=== PATIENT | female | born 1970 | race Two or more races ===

== ENCOUNTER 2024-07-09 12:12 | Outpatient (REF) | payer OTHER, SELFPAY ==
[2024-07-09 13:31] LABS: Hematocrit 41.7 % (37.0-47.0); Hemoglobin 13.4 g/dl (12.0-16.0); Mean Corpuscular HGB Conc 32.1 g/dl (31.0-35.0); Mean Corpuscular Hemoglobin 29.8 pg (27.0-33.0); Mean Corpuscular Volume 92.9 fL (80.0-98.0); Mean Platelet Volume 12.2 fL (9.4-12.3); Platelet Count 225 X10*3/uL (160-400); Red Blood Count 4.49 X10*6/uL (4.20-5.50); Red Cell Distribution Width 12.8 % (11.0-16.0)
[2024-07-09 13:46] LABS: Estimated Average Glucose 148 mg/dL; Hemoglobin A1C 179.4932 umol/L; Hemoglobin A1c % 6.8 % (<6.0); Total Hemoglobin (HGBA1C) 3500.6638 umol/L
[2024-07-09 14:02] LABS: Creatinine Urine 108.54 mg/dL; Microalbum/Creatinine Ratio Ur 5.5 ug/mg cr (<30)
--- OUTSIDE RECORDS SUMMARY | 2024-07-09 14:35 | XMS_ITS | Clinical Summary ---
Author Organization [facility] Address [address] [place] [address] Care Team Providers Care Launderette Attendant Name Role Phone Lesly Darling ELECTRON BEAM PHOTO MASK TECHNICIAN Primary Care Provider [phone] Source Comments PLEASE NOTE, if this patient is a minor, it may be UNLAWFUL to discuss sensitive information that is contained in these records (such as FAMILY PLANNING, MENTAL HEALTH or SUBSTANCE ABUSE) with the minor patient's parent or other person without the patient's specific authorization.[facility] Allergies Active Allergy Reactions Criticality Noted Date Comments Metformin Diarrhea 10/11/2023 Medications albuterol sulfate 90 mcg/actuation inhalerIndication s:SOB (shortness of breath) Inhale 2 Puffs into the lungs every 4 (four) hours as needed for shortness of breath or wheezing 18 g 1 02/04/20 20 Active cholecalciferol, vitamin D3, (VITAMIN D3) 1,250 mcg (50,000 unit) tab tabletIndications :Low vitamin D level Take 1 Tablet by mouth once a week 12 Tablet 3 05/28/19 23 Active blood-glucose meter monitoring kitIndications:Un controlled type 2 diabetes mellitus with hyperglycemia ([facility]) as needed for blood glucose monitoring Dispense Freeystyle 1 Each 01/21/20 23 Active lidocaine (LIDODERM) 5 % patchIndications: Chronic pain of right knee Place 1 Patch onto the skin once daily (every 24 hours) Rt leg pain/hip 30 Patch 2 01/21/20 23 Active budesonide-formot Jami (SYMBICORT) 160-4.5 mcg/actuation inhalerIndication s:Post viral syndrome Inhale 2 Puffs into the lungs 2 (two) times daily for 10 days 10 g 03/14/20 23 Active alcohol swabsIndications: Uncontrolled type 2 diabetes mellitus with hyperglycemia ([facility]) Check sugar daily. Dx: E11.65. 100 Each 5 05/30/19 24 Active cyclobenzaprine (FLEXERIL) 10 mg tabletIndications :Back strain, initial encounter Take 1 Tablet by mouth 3 (three) times daily as needed for muscle spasms 20 Tablet 1 07/12/19 24 Active celecoxib (CELEBREX) 200 mg capsuleIndication s:Back strain, initial encounter Take 1 Capsule by mouth 2 (two) times daily as needed for pain 60 Capsule 1 07/12/19 24 Active diclofenac sodium (SOLARAZE) 3 % gelIndications:Ba ck strain, initial encounter Apply topically 2 (two) times daily Rt sided back pain 100 g 2 07/12/19 24 Active lancets (FREESTYLE LANCETS) 28 gaugeIndications: Uncontrolled type 2 diabetes mellitus with hyperglycemia ([facility]) Freestyle lite lancets, check sugar 3 times daily. Dx: E11.65 100 Each 08/10/19 24 Active hydrocortisone 0.5 % creamIndications: Rash Apply topically 2 (two) times daily as needed for rash or itching At leg rash. 30 g 1 10/11/19 24 Active atorvastatin (LIPITOR) 80 mg tabletIndications :Hyperlipidemia LDL goal <70 Take 1 Tablet by mouth every evening For cholesterol 90 Tablet 1 03/22/19 25 Active acetaminophen (TYLENOL) 500 mg tabletIndications :Muscular pain Take 1 Tablet by mouth every 6 (six) hours as needed for pain 60 Tablet 2 03/22/19 25 Active empagliflozin (JARDIANCE) 25 mg tabIndications:Un controlled type 2 diabetes mellitus with hyperglycemia ([facility]) Take 1 Tablet by mouth every morning For diabetes 90 Tablet 1 04/30/19 25 Active blood sugar diagnostic (FREESTYLE LITE STRIPS) stripsIndications :Uncontrolled type 2 diabetes mellitus with hyperglycemia ([facility]) daily 100 Each 04/30/19 25 Active semaglutide (OZEMPIC) 2 mg/dose (8 mg/3 mL) pen injectorIndicatio ns:Uncontrolled type 2 diabetes mellitus with hyperglycemia ([facility]),Class 1 obesity due to excess calories with serious comorbidity and body mass index (BMI) of 30.0 to 30.9 in adult Inject 2 mg into the skin once a week 9 mL 3 04/30/19 25 Active glipiZIDE (GLUCOTROL) 10 mg tabletIndications :Uncontrolled type 2 diabetes mellitus with hyperglycemia ([facility]) Take 1 Tablet by mouth 2 (two) times daily with a meal For diabetes 180 Tablet 1 06/28/19 25 Active biotin 5 mg tabIndications: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 Take 5 mg by mouth once daily 90 Tablet 3 04/19/19 23 025 Discontin ued(Thera py completed /Not needed) olopatadine (PATANOL) 0.1 % ophthalmic solution Place 1 Drop into the left eye 2 (two) times daily 5 mL 11/20/19 23 025 Discontin ued(Thera py completed /Not needed) glipiZIDE (GLUCOTROL) 10 mg tabletIndications :Uncontrolled type 2 diabetes mellitus with hyperglycemia ([facility]) Take 1 Tablet by mouth 2 (two) times daily with a meal For diabetes 180 Tablet 1 12/29/19 24 025 Discontin ued(Reord er (E-Cancel Not Sent)) benzonatate (TESSALON) 100 mg capsuleIndication s:Cough Take 1 Capsule by mouth 3 (three) times daily as needed for cough 30 Capsule 04/26/19 25 025 Discontin ued(Thera py completed /Not needed) Active Problems Problem Noted Date Diagnosed Date Class 1 obesity due to exces s calories with serious comorbidity and body mass index (BMI) of 30.0 to 30.9 in adult 07/06/2023 Mixed hyperlipidemia 11/03/2019 Type 2 diabetes mellitus wit hout complication, without long-term current use of insulin ([facility]) 09/29/2019 Low vitamin D level 09/29/2019 Encounters Date Type Department Care Team Description 06/26/2024 3:20 PM EDT Office Visit [address] [phone] Jose Clay, PharmD Zayda Garvey Type 2 diabetes mellitus without complication, without long-term current use of insulin ([facility]) (Primary Dx); Class 1 obesity due to excess calories with serious comorbidity and body mass index (BMI) of 30.0 to 30.9 in adult; Medication management 04/29/2024 3:20 PM EST Office Visit [place] [address] [place] [address] Jose Clay, PharmD Asia Chawla Type 2 diabetes mellitus without complication, without long-term current use of insulin ([facility]) (Primary Dx); Medication management from Last 3 Months Immunizations Immunization Administration Dates Next Due Flu, Preservative Free 12/23/2019,12/25/2017,05/2016 Hep B,adult,adjuvanted (HEPLISAV) 08/03/2022,12/2022 INFLUENZA, SEASONAL, INJECTABLE 12/18/2009 Moderna COVID-19 Vaccine, re d cap blue label, 12+ Primary Series 04/15/2020,03/17/2020 PNEUMOCOCCAL CONJUGATE PCV 13 06/07/2017 PNEUMOCOCCAL POLYSACCHARIDE PPV23 12/13/2017,03/2009 TDAP 07/08/2021 ZOSTER VACCINE, RECOMBINANT (SHINGRIX) Social History Tobacco Use Types Packs/Day Years Used Date Smoking Tobacco: Never Passive Smoke Exposure: Never Smokeless Tobacco: Never Tobacco Cessation:Counseling Given: Not Answered Alcohol Use Standard Drinks/Week Comments Not Currently 0 (1 standard drink = 0.6 oz pur e alcohol) Social Connections Answer Date Recorded Connectedness 1 09/25/2023 Financial Resource Strain Answer Date R ecorded Financial Resource Strain 1 2023 Stress Answer Date Recorded Stress 1 09/25/2023 Physical Activity Answer Date Recorded Physical Activity 0 09/25/2019 Food Insecurity Answer Date Recorded Food 1 09/25/2023 Transportation Needs Answer Date Record ed Transportation 1 09/25/2023 Housing Stability Answer Date Recorded Housing 0 09/25/2023 Safety and Environment Answer Date Kraig rded Safety 0 05/27/2022 Utilities Answer Date Recorded Utilities 1 09/25/2023 Employment Answer Date Recorded Stress 0 09/25/2019 Comments No Sex and Gender Information Value Date Recorded Sex Assigned at Female 03/05/2020 12:57 PM PST Legal Sex Female 8:56 AM PDT Gender Identity Female 03/05/2020 12:57 PM PST Sexual Orientation Straight 03/05/2020 12 :57 PM PST Last Filed Vital Signs Vital Sign Reading Time Taken Comments Blood Pressure 102/60 06/26/2024 3:23 PM EDT Pulse 69 06/26/2024 3:23 PM EDT Temperature 37 ??C (98.6 ??F) 06/26/2024 3:23 PM EDT Respiratory Rate 16 06/26/2024 3:23 PM EDT Oxygen Saturation 100% 04/29/2024 3:39 PM EST Inhaled Oxygen Concentration - - Weight 72.2 kg (159 lb 3.2 oz) 06/26/2024 3:23 P M EDT Height 154.9 cm (5' 1 ) 06/26/2024 3:23 PM EDT Body Mass Index 30.08 06/26/2024 3:23 PM EDT Plan of Treatment Upcoming Encounters Date Type Department Care Team (Late st Contact Info) Description 07/16/2024 2:40 PM EDT Office Visit [address] [phone] Artemio Cruz MD [address] [place] [phone] Zayda Garvey [address] [place] [phone] 07/19/2024 4:00 PM EDT Office Visit [address] [phone] Kanchan Robles PA-C [address] [place] [phone] 08/15/2024 3:20 PM EDT Office Visit [address] [phone] Jose Clay, PharmD [address] [place] [phone] Zayda Garvey [address] [place] [phone] Health Maintenance Due Date Last Done Comments Anxiety Screening 1970 Dental Examination 1970 HPV Screening [address] Colonography 2015 Colonoscopy 2015 Colorectal Cancer Screening 2015 FIT/gFOBT 2015 Fecal DNA 2015 Flexible Sigmoidoscopy 2015 Cervical Cancer Screening 08/30/2021 Pap + HPV 08/30/2021 08/30/2016 Imm-Pneumococcal (3 of 3 - PCV20 or PCV21) 12/13/2022 12/13/2017, 06/07/2017, 12/18/2009 Diabetes Foot Exam 05/29/2024 05/30/2023 Annual Preventive Care Visit 07/11/2024 07/12/2023, 05/27/2022 Diabetes HbA1c 07/27/2024 04/29/2024, 12/18, 09/25/2023, Additional history exists Imm-Influenza (#1) 2024 12/23/2019, 1 , 12/20/2016, Additional history exists Postponed from 11/19/2023 (Patient postponement) [id number] ( season) 2024 04/15/2020, 03/17/2020 Postponed from 11/19/2023 (Patient postponement) Lipid Screening 09/24/2024 09/25/2023, 06/2022, 05/27/2022, Additional history exists Serum Creatinine 09/24/2024 09/25/2023, 06/2022, 05/27/2022, Additional history exists Tobacco Screening 09/24/2024 09/25/2023, 07/06/2023 Urine Albumin Creatinine Ratio Screening 09/24/2024 09/25/2023, 05/30/2023, 05/27/2022, Additional history exists Retinopathy Screening 12/12/2024 12/13/2023 , 12/13/2023, 09/26/2022, Additional history exists Hypertension Screening (#1) 06/26/2025 Breast Cancer Screening (Mammogram) 08/07/2025 08/08/2023, 08/25/2020, 08/03/2016 Imm-DTaP/Tdap/Td (2 - Td or Tdap) 07/09/2031 07/08/2021 HIV Screening Completed 09/25/2019 Hepatitis C Screening Completed 09/25/2019 Imm-Zoster, Recombinant Discontinued 05/27/2022 Imm-Hepatitis B Completed 08/03/2022, 05/27/2022 Alcohol and Drug Screen Completed 03/22/19, 09/25/2023, 07/06/2023, Additional history exists Depression Annual Screen Completed 03/22/2024 Cervical Ablation/Cold-Knife Conization Discontinued Cervical Cryotherapy Discontinued Colposcopy Discontinued Endometrial Biopsy Discontinued Excision/Leep Discontinued HPV Genotyping Discontinued Vaginal Pap Discontinued Vulvoscopy Discontinued Procedures Procedure Name Priority Date/Time Associated Diagnosis Comments GLUCOSE, BLOOD BY GLUCOSE MONITORING DEVICE (CLIA WAIVED)POCT Routine 06/26/2024 3:28 PM EDT Type 2 diabetes mellitus without complication, without long-term current use of insulin ([facility]) OTHER ORDERS SCANNED DOCUMENT 06/26/2024 3:00 AM EDT OTHER ORDERS SCANNED DOCUMENT 06/25/2024 3:00 AM EDT HEMOGLOBIN GLYCOSYLATED A1C Routine 04/29/2024 3:59 PM EST Type 2 diabetes mellitus without complication, without long-term current use of insulin ([facility]) GLUCOSE, BLOOD BY GLUCOSE MONITORING DEVICE (CLIA WAIVED)POCT Routine 04/29/2024 3:44 PM EST Type 2 diabetes mellitus without complication, without long-term current use of insulin ([facility]) EYE EXAM 12/13/2023 3:00 AM EDT COMPREHENSIVE METABOLIC PANEL Routine 09/25/2023 4:27 PM EDT Uncontrolled type 2 diabetes mellitus with hyperglycemia ([facility]) Mixed hyperlipidemia Diarrhea, unspecified type LIPID PANEL Routine 09/25/2023 4:27 PM EDT Uncontrolled type 2 diabetes mellitus with hyperglycemia ([facility]) Mixed hyperlipidemia Diarrhea, unspecified type MICROALBUMIN/CREATINI NE RATIO, URINE, RANDOM Routine 09/25/2023 4:27 PM EDT Uncontrolled type 2 diabetes mellitus with hyperglycemia ([facility]) Mixed hyperlipidemia Diarrhea, unspecified type HISTORIC MAMMOGRAM 08/08/2023 3: 00 AM EDT ANTIBODY HIV-1&HIV-2 SINGLE RESULT Routine 09/25/2019 11:27 AM EDT Uncontrolled type 2 diabetes mellitus with hyperglycemia ([facility]) HEPATITIS A,B,C PANEL Routine 09/25/2019 11:27 AM EDT Uncontrolled type 2 diabetes mellitus with hyperglycemia ([facility]) from Last 3 Months or Most Recently Relevant to Health Maintenance Results * (ABNORMAL) GLUCOSE, BLOOD BY GLUCOSE MONITORING DEVICE (CLIA WAIVED)POCT (06/26/2024 3:28 PM EDT) Only the most recent of2 resultswithin the time period is included. GLUCOSE 107(A) 70 - 100 mg/dL [facility] POCT Capillary Blood Blood / Unknown 3:28 PM EDT Jose Clay PharmD LAB - BLOOD DRAW Final Resu lt [facility] POCT * OTHER ORDERS SCANNED DOCUMENT (06/26/2024 3:00 AM EDT) Only the most recent of2 resultswithin the time period is included. 06/26/2024 3:00 AM EDT Lesly Darling ELECTRON BEAM PHOTO MASK TECHNICIAN SCAN OTHER ORDERS Final Result * (ABNORMAL) HEMOGLOBIN GLYCOSYLATED A1C (04/29/2024 3:59 PM EST) HEMOGLOBIN A1C 7.1(H) <5.7 % of total Hgb [facility] Comment: For someone without known diabetes, a hemoglobin A1c value of 6.5% or greater indicates that they may have diabetes and this should be confirmed with a follow-up test. For someone with known diabetes, a value <7% indicates that their diabetes is well controlled and a value greater than or equal to 7% indicates suboptimal control. A1c targets should be individualized based on duration of diabetes, age, comorbid conditions, and other considerations. Currently, no consensus exists regarding use of hemoglobin A1c for diagnosis of diabetes for children. ?? Blood Blood / Unknown 04/29/2024 3 :59 PM EST 04/29/2024 3:59 PM EST Narrative [facility] - 04/30/2024 4:53 AM EST FASTING:NO Butch Graf PharmD LAB - BLOOD DRAW Final Re sult Performing Organization Address [facility]/ZIP Co de Phone Number [facility] [address] [address], [facility] [address] [address] * EYE EXAM (12/13/2023 3:00 AM EDT) 12/13/2023 3:00 AM EDT Lesly [facility] OTHER Edited Result - Final * MICROALBUMIN/CREATININE RATIO, URINE, RANDOM (09/25/2023 4:27 PM EDT) CREATININE, RANDOM URINE 235 20 - 275 mg/dL [facility] MICROALBUMIN 0.7 mg/dL [facility] Comment: Reference Range Not established MICROALBUMIN/CREA TININE RATIO, RANDOM URINE 3 <30 mg/g creat [facility] Comment: The ADA defines abnormalities in albumin excretion as follows: Albuminuria Category ?Result (mg/g creatinine) Normal to Mildly increased ?? <30 Moderately increased ? 30-299 Severely increased ? > OR = 300 The ADA recommends that at least two of three specimens collected within a 3-6 month period be abnormal before considering a patient to be within a diagnostic category. Urine Urine specimen / Unknown 09/25/2023 4:27 PM EDT 09/25/2023 4:28 PM EDT Narrative [facility] - 09/26/2023 2:22 PM EDT FASTING:YES Lesly LESTERP LAB - NO BLOOD DRAW Final Resu lt Performing Organization Address [facility]/ZIP Co de Phone Number [facility] [address] [address], [facility] [address] * (ABNORMAL) LIPID PANEL (09/25/2023 4:27 PM EDT) CHOLESTEROL, TOTAL 197 <200 mg/dL [facility] HDL CHOLESTEROL 60 > OR = 50 mg/dL [facility] TRIGLYCERIDES 120 <150 mg/dL [facility] LDL-CHOLESTEROL 114(H) 99 mg/dL (calc) [facility] Comment: Reference range: <100 Desirable range <100 mg/dL for primary prevention; ?? <70 mg/dL for patients with CHD or diabetic patients with > or = 2 CHD risk factors. LDL-C is now calculated using the Lucía calculation, which is a validated novel method providing better accuracy than the Friedewald equation in the estimation of LDL-C. Deangelo SS et al. DAVID. 2013;310(19): 7152-8702 (http://education.ii4b/faq/DLQ956) CHOL/HDLC RATIO 3.3 <5.0 (calc) [facility] NON-HDL CHOLESTEROL 137(H) <130 mg/dL (calc) [facility] Comment: For patients with diabetes plus 1 major ASCVD risk factor, treating to a non-HDL-C goal of <100 mg/dL (LDL-C of <70 mg/dL) is considered a therapeutic option. Blood Blood / Unknown 09/25/2023 4 :27 PM EDT 09/25/2023 4:28 PM EDT Narrative [facility] - 09/26/2023 2:22 PM EDT FASTING:YES us Lesly LESTERP LAB - BLOOD DRAW Final Result Performing Organization Address City/[facility]/ZIP Co de Phone Number [facility] [address] [address], [facility] [address] [address] * (ABNORMAL) COMPREHENSIVE METABOLIC PANEL (09/25/2023 4:27 PM EDT) GLUCOSE 198(H) 65 - 99 mg/dL [facility] Comment: ?Fasting reference interval For someone without known diabetes, a glucose value >125 mg/dL indicates that they may have diabetes and this should be confirmed with a follow-up test. UREA NITROGEN (BUN) 14 7 - 25 mg/dL [facility] CREATININE (blood) 0.77 0.50 - 1.03 mg/dL [facility] EGFR 92 > OR = 60 mL/min/1. 73m2 [facility] BUN/CREATININE RATIO SEE NOTE: [facility] Comment: ?? Not Reported: BUN and Creatinine are within ?? reference range. ? SODIUM 136 135 - 146 mmol/L [facility] POTASSIUM 4.5 3.5 - 5.3 mmol/L [facility] CHLORIDE 99 98 - 110 mmol/L [facility] CARBON DIOXIDE 30 20 - 32 mmol/L [facility] CALCIUM 9.8 8.6 - 10.4 mg/dL [facility] PROTEIN, TOTAL 7.9 6.1 - 8.1 g/dL [facility] ALBUMIN 4.3 3.6 - 5.1 g/dL [facility] GLOBULIN 3.6 1.9 - 3.7 g/dL (calc) [facility] ALBUMIN/GLOBULI N RATIO 1.2 1.0 - 2.5 (calc) [facility] BILIRUBIN, TOTAL 0.5 0.2 - 1.2 mg/dL [facility] ALKALINE PHOSPHATASE 84 37 - 153 U/L [facility] AST 15 10 - 35 U/L [facility] ALT 21 6 - 29 U/L [facility] Blood Blood / Unknown 09/25/2023 4 :27 PM EDT 09/25/2023 4:28 PM EDT Narrative [facility] - 09/26/2023 2:22 PM EDT FASTING:YES Lesly LESTERP LAB - BLOOD DRAW Edited Result - Final [facility] [address] [address], [facility] [address] [place] [address] * HISTORIC MAMMOGRAM (08/08/2023 3:00 AM EDT) 08/08/2023 3:00 AM EDT Lesly LESTERP IMG MAMMO Final Result * HEPATITIS A,B,C PANEL (09/25/2019 11:27 AM EDT) HEPATITIS B SURFACE ANTIBODY NEGATIVE NEGATIVE [facility] HEPATITIS B SURFACE ANTIGEN NEGATIVE NEGATIVE [facility] Comment: Over the counter supplements containing high doses of biotin may interfere with this assay. ??If interference is suspected, patients shoud be retested after refraining from biotin supplements for 72 hours. HEPATITIS C VIRUS DIAGNOSTIC NEGATIVE NEGATIVE [facility] HEPATITIS B CORE ANTIBODY NEGATIVE NEGATIVE [facility] HEPATITIS A ANTIBODY TOTAL NEGATIVE NEGATIVE [facility] Comment: Over the counter supplements containing high doses of biotin may interfere with this assay. ??If interference is suspected, patients shoud be retested after refraining from biotin supplements for 72 hours. Blood specimen (specimen) Blood / Unknown 09/25/2019 11:27 AM EDT 09/25/2019 3:44 PM EDT Narrative [facility] - 09/25/2019 5:33 PM EDT [employer] [address] Wire Walker - Iliana Lyons MD PT ID [id number] ORD# [id number] Lesly Darling [facility] LAB - BLOOD DRAW [place] [address], * HIV-1 & HIV-2 ANTIBODIES (09/25/2019 11:27 AM EDT) HIV 1 AND 2 ANTIBODY SCREEN NEGATIVE NEGATIVE [facility] Comment: This assay is a 4th generation assay allowing for earlier detection of HIV infection by detecting the presence of the HIV-1 p24 antigen as well as the traditional antibodies to HIV type 1 (including group O) and type 2. ??Use of a 4th generation assay is the current CDC recommendation for HIV screening. Blood specimen (specimen) Blood / Unknown 09/25/2019 11:27 AM EDT 09/25/2019 3:44 PM EDT [facility] [employer] - 09/25/2019 6:02 PM EDT [employer], a member of [address] [address] Wire Walker - Iliana Lyons MD PT ID [id number] ORD# [id number] Lesly [facility] LAB - BLOOD DRAW Edited Result - Final [employer] [address], from Last 3 Months or Most Recently Relevant to Health Maintenance Insurance [employer] Member Subscriber Plan / Payer (Ef fective 2019-Present) Name:Ashli Avendaño Relation to Subscriber:Self Name:Ashli Avendaño Payer ID:[id number] Type:Indemnity Address: [facility] [address] [place] [address] Care Teams Launderette Attendant Relationship Specialty Start Date End Date Lesly Darling FNP [address] [place] [address] PCP - General Internal Medicine 07/11/19
--- OUTSIDE RECORDS SUMMARY | 2024-07-09 14:35 | XMS_ITS | Clinical Summary ---
Author Organization [employer] Address [address] [facility] [address] [place] [address] Care Team Providers Care Auto Heater Mechanic Name Role Phone Ilda Stewart DO Primary Care Provider [phone] Allergies Active Allergy Reactions Criticality Noted Date Comments Metformin Diarrhea 10/11/2023 Medications glipiZIDE (Glucotrol) 10 MG tablet Take 10 mg by mouth with breakfast and with evening meal. 5 Active FREESTYLE LITE test strip Once per day. 5 Active albuterol 108 (90 Base) MCG/ACT inhaler Inhale 2 puffs every 4 (four) hours if needed. 0 Active atorvastatin (Lipitor) 80 MG tablet Take 80 mg by mouth in the evening. 5 Active empagliflozin (Jardiance) 25 MG Take 25 mg by mouth in the morning. 5 Active FreeStyle lancets Freestyle lite lancets, check sugar 3 times daily. Dx: E11.65 4 Active Active Problems Problem Noted Date Diagnosed Date Type 2 diabetes mellitus 07/09/2024 Hyperlipidemia 07/09/2024 Encounters Date Type Department Care Team Description 07/09/2024 10:45 AM EDT Office Visit [facility] [address] [place] [phone] Ilda Stewart DO Routine history and physical examination of adult (Primary Dx); Type 2 diabetes mellitus without complication, without long-term current use of insulin ([facility]); Other hyperlipidemia; Anxiety; Mild intermittent asthma without complication; BMI 29.0-29.9,adult 07/09/2024 Travel 06/28/2024 Patient Outreach [facility] [address] [place] [phone] Jurcsak, Ilda, DO Pre-visit Planning ((Unable to reach for PVP screening, LVM)) 05/02/2024 Telephone [facility] [address] [place], [place] [phone] Mayra Hurt NP New patient from Last 3 Months Immunizations Name Administration Dates Next Due HepB-CpG 08/03/2022,05/27/2022 Influenza injectable quadriv alent preservative free 12/23/2019,12/25/2017,12/20/2016 Influenza, IIV3, injectable 12/18/2009 Pneumococcal Conjugate PCV 13 06/07/2017 Pneumococcal Polysaccharide PPSV23 12/13/2017, Tdap 07/08/2021 Zoster, Recombinant 05/27/2022 Family History Medical History Relation Name Comments Diabetes Brother Hypertension Brother Colon cancer Father Diabetes Father Diabetes Half-Sister Hypertension Half-Sister Stroke Half-Sister Colon cancer Maternal Grandfather Breast cancer Maternal Grandmother Breast cancer Mother Colon cancer Mother Diabetes Mother Breast cancer Paternal Grandmother Diabetes Sister Hypertension Sister Relation Name Status Comments Brother Father Half-Sister Maternal Grandfather Maternal Grandmother Mother Paternal Grandmother Sister Social History Tobacco Use Types Packs/Day Years Used Date Smoking Tobacco: Never Smokeless Tobacco: Never Tobacco Cessation:Counseling Given: Not Answered Alcohol Use Standard Drinks/Week Comments Never 0 (1 standard drink = 0.6 oz pur e alcohol) Depression Answer Date Recorded Patient Health Questionnaire-9 Score 0 07/09/2024 Patient Health Questionnaire-9 Score 0 07/09/2024 Last PHQ-9: Questionnaire Data Not on file 0 07/09/2024 Food Insecurity Answer Date Recorded Within the past 12 months, y ou worried that your food would run out before you got money to buy more: Sometimes True 2024 Within the past 12 months,th e food you bought just didn't last and you didn't have enough money to get more: Not on file 07/09/2024 Utilities Answer Date Recorded In the past 12 months, has t he electric, gas, oil or water company threatened to shut off services in your home? Yes 07/09/2024 Depression Answer Date Recorded Patient Health Questionnaire-2 Score 0 07/09/2024 Internet Access Answer Date Recorded Internet Access Q1 Yes 07/09/2024 Internet Access Q2 Not on file 07/09/2024 Comments Unknown Sex and Gender Information Value Date Recorded Sex Assigned at Unknown 07/05/2024 11:29 AM EDT Legal Sex Female 9:25 AM EST Gender Identity Choose not to disclose 11:29 AM EDT Sexual Orientation Don't know 07/05/2024 12 :39 PM EDT Last Filed Vital Signs Vital Sign Reading Time Taken Comments Blood Pressure 118/75 07/09/2024 11:17 AM EDT Pulse 79 07/09/2024 11:17 AM EDT Temperature 36.3 ??C (97.3 ??F) 07/09/2024 11:17 AM E DT Respiratory Rate 16 07/09/2024 11:17 AM EDT Oxygen Saturation 100% 07/09/2024 11:17 AM EDT Inhaled Oxygen Concentration - - Weight 70.3 kg (155 lb) 07/09/2024 11:17 AM EDT Height 154.9 cm (5' 1 ) 07/09/2024 11:17 AM EDT Body Mass Index 29.29 07/09/2024 11:17 AM EDT Plan of Treatment Health Maintenance Due Date Last Done Comments CT Colonography 1970 Colonoscopy 1970 Colorectal Cancer Screening 1970 FIT DNA/Cologuard 1970 FIT 1970 FOBT 1970 HIV Screening 1970 Lipid Panel 1970 SDOH Screening 1970 Sigmoidoscopy 1970 Diabetes: Foot Exam 01/12/1980 Eye Exam 01/12/1980 Alcohol/Substance Use Screening 1982 Hepatitis C Screening 01/12/1988 Pap Smear 1991 Cervical Cancer Screening 01/12/2000 HPV/Cotest 01/12/2000 Mammogram 2010 Zoster Vaccines (2 of 2) 07/22/2022 05/27/2022 Pneumococcal Vaccine: 50+ Years (3 of 3 - PCV20 or PCV21) 12/13/2022 12/13/2017, 06/07/2017, 12/18/2009 COVID-19 Vaccine (3 - season) 2023 04/15/2020, 03/17/2020 Influenza Vaccine (#1) 2023 0, 12/25/2017, 12/20/2016, Additional history exists Diabetes: Hemoglobin A1C 01/08/2025 07/09/2024, 0404/2024 Depression Screening 07/09/2025 07/09/2024, 07/10/19 Diabetes: Urine Protein Screening 07/09/2025 07/09/2024 Tobacco Screening 07/09/2025 07/09/2024 DTaP/Tdap/Td Vaccines (2 - Td or Tdap) 07/09/2031 07/08/2021 RSV Patients and Patients Aged 60 years or older (1 - 1-dose 75+ series) 2045 Hepatitis B Vaccines Completed 08/03/2022, 05/28/19 HIB Vaccines Aged Out No longer eligi ble based on patient's age to complete this topic HPV Vaccines Aged Out No longer eligi ble based on patient's age to complete this topic Hepatitis A Vaccines Aged Out No long er eligible based on patient's age to complete this topic IPV Vaccines Aged Out No longer eligi ble based on patient's age to complete this topic Meningococcal Vaccine Aged Out No cynthia abner eligible based on patient's age to complete this topic RSV under 20 months Aged Out No longe r eligible based on patient's age to complete this topic Rotavirus Vaccines Aged Out No longer eligible based on patient's age to complete this topic Procedures Procedure Name Priority Date/Time Associated Diagnosis Comments ALBUMIN, RANDOM URINE W/CREATININE Routine 07/09/2024 12:31 PM EDT Routine history and physical examination of adult Type 2 diabetes mellitus without complication, without long-term current use of insulin ([facility]) Other hyperlipidemia Mild intermittent asthma without complication BMI 29.0-29.9,adult CBC Routine 07/09/2024 12:19 PM EDT Routine history and physical examination of adult Type 2 diabetes mellitus without complication, without long-term current use of insulin ([facility]) Other hyperlipidemia Mild intermittent asthma without complication BMI 29.0-29.9,adult HEMOGLOBIN A1C Routine 07/09/2024 12:19 PM EDT Routine history and physical examination of adult Type 2 diabetes mellitus without complication, without long-term current use of insulin (CMS/HCC) Other hyperlipidemia Mild intermittent asthma without complication BMI 29.0-29.9,adult POCT GLYCATED HEMOGLOBIN, TOTAL Routine 07/09/2024 11:23 AM EDT Routine history and physical examination of adult POCT GLUCOSE Routine 07/09/2024 11:21 AM EDT Routine history and physical examination of adult from Last 3 Months Results * Albumin, Random Urine W/Creatinine (07/09/2024 12:31 PM EDT) Creatinine, Urine 108.54 mg/dL [facility] Microalbumin Urine 6.0 mg/L [facility] Microalbum Creatinine Ratio Ur 5.5 <30 ug/mg cr [facility] Comment:Albumin/Creatinine R atio Reference Ranges: Normal: < 30 ug/mg creatinine Microalbuminuria: 30 - 300 ug/mg creatinineClinical Albuminuria: > 300 ug/mg creatinine Urine (Urine, Random) 07/09/2024 12:31 PM EDT 07/09/2024 1:22 PM EDT us Ilda Stewart DO LAB URINE ORDERABLES Final R esult [facility] [address] [place] [phone] * CBC (07/09/2024 12:19 PM EDT) White Blood Count 8.0 4.8 - 10.8 X10*3/uL [facility] Red Blood Count 4.49 4.20 - 5.50 X10*6/uL [facility] Hemoglobin 13.4 12.0 - 16.0 g/dl [facility] Hematocrit 41.7 37.0 - 47.0 % [facility] Mean Corpuscular Volume 92.9 80.0 - 98.0 fL [facility] Mean Corpuscular Hemoglobin 29.8 27.0 - 33.0 pg [facility] Mean Corpuscular HGB Conc 32.1 31.0 - 35.0 g/dl [facility] Red Cell Distribution Width 12.8 11.0 - 16.0 % [facility] Platelet Count 225 160 - 400 X10*3/uL [facility] Mean Platelet Volume 12.2 9.4 - 12.3 fL [facility] NRBC Pct Auto 0.0 0.0 - 0.2 /100WBC [facility] NRBC Abs Auto 0.000 0.0 - 0.012 X10*3/uL [facility] Blood Venous blood specimen / Unknown 07/09/2024 12:19 PM EDT 07/09/2024 1:13 PM EDT Ilda Stewart DO LAB BLOOD ORDERABLES Final R esult [facility] [address] [place] [phone] * (ABNORMAL) Hemoglobin A1c (07/09/2024 12:19 PM EDT) Hemoglobin A1c 6.8(H) <6.0 % [facility] Comment:Hemoglobin A1C Refer ence Range Adults: 4.8 - 6.0 % Non diabetic: < 6.0 % Goal: < 7.0 %Additional Action Suggested: > 8.0 %Note: Hemoglobin A1c results are invalid for patients with abnormal amounts of HbF. Blood transfusions may impact the HbA1c concentration in the patient sample. Estimated Average Glucose 148 mg/dL [facility] Comment:eAG = Estimated ave rage glucose which is %A1C expressed asaverage glucose, using the formula of the B6D-KpssbxpWpkdacw Glucose study (ADAG), Diabetes Care, Vol.31,#8,Oct. 2007 Blood Venous blood specimen / Unknown 07/09/2024 12:19 PM EDT 07/09/2024 1:13 PM EDT Ilda Stewart DO LAB BLOOD ORDERABLES Final R esult [facility] [address] [place] [phone] * (ABNORMAL) POCT HGB A1C (07/09/2024 11:23 AM EDT) Hemoglobin A1C 7.0(A) 4.0 - 6.0 % QC Media Lot # [id number] Lot# Expiration Date Blood 07/09/2024 11:2 3 AM EDT Ilda Stewart DO POINT OF CARE TEST ENTER/YUMI T ORDERABLES Final Result * POCT Glucose (07/09/2024 11:21 AM EDT) Glucose Blood, POC 180 60 - 200 mg/dL QC Media Lot # [id number] Lot# Expiration Date Blood Capillary blood specimen / Unknown 07/09/2024 11:21 AM EDT Ilda Stewart DO POINT OF CARE TEST ENTER/YUMI T ORDERABLES Final Result from Last 3 Months Insurance [facility] Care Teams Auto Heater Mechanic Relationship Specialty Start Date End Date Ilda Stewart DO [address] [place] [phone] PCP - General Family Medicine 07/09/24
--- OUTSIDE RECORDS SUMMARY | 2024-07-09 14:35 | XMS_ITS | Encounter Summary ---
Author Organization [employer] Address [address] [place] [address] Care Team Providers Care Supervisor General Name Role Phone Pat Ilda Primary Care Provider [phone] Encounter Details Date Type Department Care Team (Latest Contact Info) Description 07/09/2024 Travel Social History Tobacco Use Types Packs/Day Years Used Date Smoking Tobacco: Never Smokeless Tobacco: Never Alcohol Use Standard Drinks/Week Comments Never 0 [...] Don't know 07/05/2024 12 :39 PM EDT documented as of this encounter Plan of Treatment Not on file documented as of this encounter Visit Diagnoses Not on filedocumented in this encounter Additional Health Concerns Assessment Noted Time PHQ-9 Depression Total Score: 0 07/10/19 11:29 AM EDT documented as of this encounter Care Teams Supervisor General Relationship Specialty Start Date End Date Ilda Stewart DO [address] [place] [address] PCP - General Family Medicine 07/09/24 documented as of this encounter
--- OUTSIDE RECORDS SUMMARY | 2024-07-09 14:35 | XMS_ITS | Clinical Summary ---
Author Organization [facility] Address [address] [place] [address] Care Team Providers Care Software Design Engineer Name Role Phone Aníbal Helton AMY Primary Care Provider [phone] Immunizations Name Administration Dates Next Due Moderna SARS-CoV-2 COVID-19, mRNA, LNP-S, preservative free 04/15/2020,03/17/2020 Surgical History Surgery Date Site/Laterality Comments OTHER SURGICAL HISTORY PROCEDURE: DENIES PREVIOUS SURGERY Medical History Medical History Date Comments Diabetes mellitus, type 2 (C MS/HCC V24, CMS/HCC V28) DX:Diabetes mellitus, type 2 (HCC) Hyperlipidemia DX:Hyperlipidemi a Vitamin D deficiency DX:Vitamin D deficiency Esophageal reflux DX:Esophageal reflux Social History Tobacco Use Types Packs/Day Years Used Date Smoking Tobacco: Never Smokeless Tobacco: Never Alcohol Use Standard Drinks/Week Comments Never 0 (1 standard drink = 0.6 oz pur e alcohol) Comments Unknown Sex and Gender Information Value Date Recorded Sex Assigned at Not on file Legal Sex Female 6:35 AM EST Gender Identity Not on file Sexual Orientation Not on file Obstetrics History Plan of Treatment Health Maintenance Due Date Last Done Comments Diabetes: Annual GFR (Glomerular Filtration Rate) 1970 Diabetes: Annual Foot Exam 01/12/1980 Diabetes: Annual Retina Eye Exam 01/12/1980 DTaP,Tdap,and Td Vaccines (1 - Tdap) 1989 Hepatitis B Vaccines (1 of 3 - 19+ 3-dose series) 1989 Cervical Cancer Screening: P ap Smear 1991 Pneumococcal Vaccine: 50+ Years (1 of 1 - PCV) 01/12/2020 Zoster Vaccines (1 of 2) 01/12/2020 Cholesterol Screening (Lipid Panel) 02/20/2022 Colorectal Cancer Screening: Colonoscopy 02/20/2022 HIV Screening 02/20/2022 Hepatitis C Screening 02/20/2022 Social Influencers of Health Screening 02/20/2022 Breast Cancer Screening 08/25/2022 08/25/2020 COVID-19 Vaccine (2023-2 5 season) 2023 04/15/2020, 03/17/2020 Diabetes: Annual Urine Albumin-Creatinine Ratio (uACR) 03/26/2024 Diabetes: Blood Sugar Contro l Test (HGBA1C) 03/26/2024 Influenza Vaccine (Season Ended) 2024 Depression Screening 03/22/2025 03/22/2024 HIB Vaccines Aged Out No longer eligi [...] on patient's age to complete this topic MMR Vaccines Aged Out No longer eligi ble based on patient's age to complete this topic Meningococcal ACWY Vaccine Aged Out N o longer eligible based on patient's age to complete this topic Meningococcal B Vaccine Aged Out No l onger eligible based on patient's age to complete this topic Pneumococcal Vaccine: Pediatrics (0 to 5 Years) and At-Risk Patients (6 to 64 Years) Aged Out No longer eligible b ased on patient's age to complete this topic RSV Immunization Patients Under 20 months Aged Out No longer eligible b ased on patient's age to complete this topic Varicella Vaccines Aged Out No longer eligible based on patient's age to complete this topic Procedures Procedure Name Priority Date/Time Associated Diagnosis Comments [facility] SCREENING DIGITAL Routine 08/25/2020 8:49 AM EDT Encounter for screening mammogram for malignant neoplasm of breast from Last 3 Months or Most Recently Relevant to Health Maintenance Results * [facility] SCREENING DIGITAL (08/25/2020 8:49 AM EDT) Anatomical Region Laterality Modality Mammography 08/24/2020 10:4 7 AM EDT Narrative 08/25/2020 8:49 AM EDT [facility] Diagnostic Imaging Department [address] [place] [phone] Patient: ??ASHLI AVENDAÑO ?/Age/Sex: 1970 - 50 - F Unit#: ??[id number] ? Location/Status: ??SPDIMAM/REG CLI ? Mnemonic/Ordering Site: ??DIGSC/SPMAM Ordering Physician: ??ANÍBAL HELTON NP Yobany Screening Digital - 08/24/20 - 1131 INDICATION: SCREENING COMPARISON: [facility] mammograms dating back to 09/27/2011 TECHNIQUE: CC and MLO views of the breasts were obtained, using full field digital mammography with 3D tomosynthesis views in the MLO projection. Computer aided detection with the TrueVault 7.2-H was employed. FINDINGS: The breasts contain scattered fibroglandular tissues. No suspicious masses, suspicious microcalcifications, or areas of architectural distortion are identified. ??There are no secondary signs of breast malignancy. Rare benign-appearing breast calcifications are present. IMPRESSION: ??No specific mammographic evidence of breast malignancy. Lack of an imaging correlate should not deter or delay biopsy of a clinically significant palpable finding. BI-RADS ??- Category 2 - Benign finding 3342F, 7025F Annual screening mammography is recommended. Patient entered into a reminder system with a target date for the next mammogram. ([id number] / [id number]) , ??[id number] Dictating Physician: ??ANTHONY RUFFIN MD Electronically Signed by: ??ANTHONY RUFFIN MD Dic Date/Time: ??08/25/20 0842 Sign date/Time: ??08/25/20 0849 Procedure Note Anthony Ruffin MD - 03/08/2022 [facility] Diagnostic Imaging Department [address] [place] [phone] Patient: ASHLI AVENDAÑO /Age/Sex: 1970 - 50 - F Unit#: [id number] Location/Status: SPDIMAM/REG CLI Mnemonic/Ordering Site: [facility] Ordering Physician: ANÍBAL HELTON MELTING SUPERVISOR Yobany Screening Digital - 08/24/20 - 1131 INDICATION: SCREENING COMPARISON: [facility] mammograms dating back to 09/27/2011 TECHNIQUE: CC and MLO views of the breasts were obtained, using full field digital mammography with 3D tomosynthesis views in the MLO projection. Computer aided detection with the TrueVault 7.2-H was employed. FINDINGS: The breasts contain scattered fibroglandular tissues. No suspicious masses, suspicious microcalcifications, or areas ofarchitectural distortion are identified. There are no secondary signs of breastmalignancy. Rare benign-appearing breast calcifications are present. IMPRESSION: No specific mammographic evidence of breast malignancy. Lack of an imaging correlate should not deter or delay biopsy of aclinically significant palpable finding. BI-RADS - Category 2 - Benign finding 3342F, 7025F Annual screening mammography is recommended. Patient entered into a reminder system with a target date for the next mammogram. ([id number] / [id number]) , [id number] Dictating Physician: ANTHONY RUFFIN MD Electronically Signed by: ANTHONY RUFFIN MD Dic Date/Time: 08/25/20 0842 Sign date/Time: 08/25/20 0849 Aníbal Helton NP IMG BI PROCEDURES Final Result from Last 3 Months or Most Recently Relevant to Health Maintenance Care Teams Software Design Engineer Relationship Specialty Start Date End Date Aníbal Helton NP [facility] [place] [address] PCP - General 09/24/20
--- OUTSIDE RECORDS SUMMARY | 2024-07-09 14:35 | XMS_ITS | Encounter Summary ---
Author Organization [employer] Address [address] [facility] [facility] [address] [place] [address] Care Team Providers Care Software Applications Developer Name Role Phone Ilda Stewart DO Primary Care Provider [phone] Reason for Visit * Reason Comments new pt Encounter Details Date Type Department Care Team (Late st Contact Info) Description 07/09/2024 10:45 AM EDT Office Visit [facility] [address] [place], [place] [phone] Ilda Stewart DO [address] [place], [place] [phone] Routine history and physical examination of adult (Primary Dx); Type 2 diabetes mellitus without complication, without long-term current use of insulin ([facility]); Other hyperlipidemia; Anxiety; Mild intermittent asthma without complication; BMI 29.0-29.9,adult Social History Tobacco Use Types Packs/Day Years [...] PM EDT documented as of this encounter Last Filed Vital Signs Vital Sign Reading [...] Mass Index 29.29 07/09/2024 11:17 AM EDT documented in this encounter Plan of Treatment Scheduled Orders Name Type Priority Associated Diagnoses Orde r Schedule T4, Free Lab Routine Routine history and physical examination of adult Type 2 diabetes mellitus without complication, without long-term current use of insulin ([facility]) Other hyperlipidemia Mild intermittent asthma without complication BMI 29.0-29.9,adult Expected: 07/09/2024 (Approximate), Expires: 07/09/2025 Vitamin D, 25-Hydroxy, Total, Immunoassay Lab Routine Routine history and physical examination of adult Type 2 diabetes mellitus without complication, without long-term current use of insulin ([facility]) Other hyperlipidemia Mild intermittent asthma without complication BMI 29.0-29.9,adult Expected: 07/09/2024 (Approximate), Expires: 07/09/2025 Lipid Panel, Standard Lab Routine Routine history and physical examination of adult Type 2 diabetes mellitus without complication, without long-term current use of insulin ([facility]) Other hyperlipidemia Mild intermittent asthma without complication BMI 29.0-29.9,adult Expected: 07/09/2024 (Approximate), Expires: 07/09/2025 TSH Lab Routine Routine history and physical examination of adult Type 2 diabetes mellitus without complication, without long-term current use of insulin (CMS/HCC) Other hyperlipidemia Mild intermittent asthma without complication BMI 29.0-29.9,adult Expected: 07/09/2024 (Approximate), Expires: 07/09/2025 Hepatic Function Panel Lab Routine Routine history and physical examination of adult Type 2 diabetes mellitus without complication, without long-term current use of insulin (CMS/HCC) Other hyperlipidemia Mild intermittent asthma without complication BMI 29.0-29.9,adult Expected: 07/09/2024 (Approximate), Expires: 07/09/2025 Basic Metabolic Panel Lab Routine Routine history and physical examination of adult Type 2 diabetes mellitus without complication, without long-term current use of insulin (CMS/HCC) Other hyperlipidemia Mild intermittent asthma without complication BMI 29.0-29.9,adult Expected: 07/09/2024 (Approximate), Expires: 07/09/2025 Hepatitis B surface antigen, EIA Lab Routine Routine history and physical examination of adult Type 2 diabetes mellitus without complication, without long-term current use of insulin (CMS/HCC) Other hyperlipidemia Mild intermittent asthma without complication BMI 29.0-29.9,adult Expected: 07/09/2024 (Approximate), Expires: 07/09/2025 Chlamydia/N. Gonorrhoeae RNA, TMA, Urogenitial Microbiology Routine Routine history and physical examination of adult Type 2 diabetes mellitus without complication, without long-term current use of insulin (CMS/HCC) Other hyperlipidemia Mild intermittent asthma without complication BMI 29.0-29.9,adult Ordered: 07/09/2024 HIV-1/2 Antigen and Antibodies, Fourth Generation, with Reflexes Lab Routine Routine history and physical examination of adult Type 2 diabetes mellitus without complication, without long-term current use of insulin (CMS/HCC) Other hyperlipidemia Mild intermittent asthma without complication BMI 29.0-29.9,adult Expected: 07/09/2024 (Approximate), Expires: 07/09/2025 Hepatitis C Antibody with Reflex to HCV, RNA, Quantitative, Real-Time PCR Lab Routine Routine history and physical examination of adult Type 2 diabetes mellitus without complication, without long-term current use of insulin (CMS/HCC) Other hyperlipidemia Mild intermittent asthma without complication BMI 29.0-29.9,adult Expected: 07/09/2024, Expires: 07/09/2025 RPR (Monitor) with Reflex to??Titer Lab Routine Routine history and physical examination of adult Type 2 diabetes mellitus without complication, without long-term current use of insulin (CMS/HCC) Other hyperlipidemia Mild intermittent asthma without complication BMI 29.0-29.9,adult Expected: 07/09/2024, Expires: 07/09/2025 Hepatitis B Surface Antibody, Qualitative Lab Routine Routine history and physical examination of adult Type 2 diabetes mellitus without complication, without long-term current use of insulin (CMS/HCC) Other hyperlipidemia Mild intermittent asthma without complication BMI 29.0-29.9,adult Expected: 07/09/2024 (Approximate), Expires: 07/09/2025 Hepatitis A Antibody, Total Lab Routine Routine history and physical examination of adult Type 2 diabetes mellitus without complication, without long-term current use of insulin (CMS/HCC) Other hyperlipidemia Mild intermittent asthma without complication BMI 29.0-29.9,adult Expected: 07/09/2024 (Approximate), Expires: 07/09/2025 Hepatitis B Core Antibody, Total Lab Routine Routine history and physical examination of adult Type 2 diabetes mellitus without complication, without long-term current use of insulin (CMS/HCC) Other hyperlipidemia Mild intermittent asthma without complication BMI 29.0-29.9,adult Expected: 07/09/2024 (Approximate), Expires: 07/09/2025 Vitamin B12 (Cobalamin) and Folate Panel, Serum Lab Routine Routine history and physical examination of adult Type 2 diabetes mellitus without complication, without long-term current use of insulin (CMS/HCC) Other hyperlipidemia Mild intermittent asthma without complication BMI 29.0-29.9,adult Expected: 07/09/2024 (Approximate), Expires: 07/09/2025 documented as of this encounter Procedures Procedure Name Priority Date/Time Associated Diagnosis [...] complication, without long-term current use of insulin ([facility]) Other hyperlipidemia Mild intermittent asthma without complication BMI 29.0-29.9,adult HEMOGLOBIN A1C Routine 07/09/2024 12:19 PM EDT Routine history and physical examination of adult Type 2 diabetes mellitus without complication, without long-term current use of insulin ([facility]) Other hyperlipidemia Mild intermittent asthma without complication BMI 29.0-29.9,adult POCT GLYCATED HEMOGLOBIN, TOTAL Routine 07/09/2024 11:23 AM EDT Routine history and physical examination of adult POCT GLUCOSE Routine 07/09/2024 11:21 AM EDT Routine history and physical examination of adult documented in this encounter Results * Albumin, Random Urine W/Creatinine (07/09/2024 12:31 PM EDT) Creatinine, Urine 108.54 mg/dL [facility] Microalbumin Urine 6.0 mg/L [facility] Microalbum Creatinine Ratio Ur 5.5 <30 ug/mg cr [facility] Comment:Albumin/Creatinine R atio Reference Ranges: Normal: < 30 ug/mg creatinine Microalbuminuria: 30 - 300 ug/mg creatinineClinical Albuminuria: > 300 ug/mg creatinine Urine (Urine, Random) 07/09/2024 12:31 PM EDT 07/09/2024 1:22 PM EDT us Ilda Stewart DO LAB URINE ORDERABLES Final R esult [facility] [address] [place] [phone] * CBC (07/09/2024 12:19 PM EDT) White Blood Count 8.0 4.8 - 10.8 X10*3/uL [facility] Red Blood Count 4.49 4.20 - 5.50 X10*6/uL [facility] Hemoglobin 13.4 12.0 - 16.0 g/dl [facility] Hematocrit 41.7 37.0 - 47.0 % [facility] Mean Corpuscular Volume 92.9 80.0 - 98.0 fL [facility] Mean Corpuscular Hemoglobin 29.8 27.0 - 33.0 pg [facility] Mean Corpuscular HGB Conc 32.1 31.0 - 35.0 g/dl [facility] Red Cell Distribution Width 12.8 11.0 - 16.0 % [facility] Platelet Count 225 160 - 400 X10*3/uL [facility] Mean Platelet Volume 12.2 9.4 - 12.3 fL [facility] NRBC Pct Auto 0.0 0.0 - 0.2 /100WBC [facility] NRBC Abs Auto 0.000 0.0 - 0.012 X10*3/uL [facility] Blood Venous blood specimen / Unknown 07/09/2024 12:19 PM EDT 07/09/2024 1:13 PM EDT us Ilda Stewart DO LAB BLOOD ORDERABLES Final R esult [facility] [address] [place] [phone] * (ABNORMAL) Hemoglobin A1c (07/09/2024 12:19 PM EDT) Hemoglobin A1c 6.8(H) <6.0 % [facility] Comment:Hemoglobin A1C Refer ence Range Adults: 4.8 - 6.0 % Non diabetic: < 6.0 % Goal: < 7.0 %Additional Action Suggested: > 8.0 %Note: Hemoglobin A1c results are invalid for patients with abnormal amounts of HbF. Blood transfusions may impact the HbA1c concentration in the patient sample. Estimated Average Glucose 148 mg/dL [facility] Comment:eAG = Estimated ave rage glucose which is %A1C expressed asaverage glucose, using the formula of the I8K-SrtpijkQrtklxo Glucose study (ADAG), Diabetes Care, Vol.31,#8,Oct. 2007 Blood Venous blood specimen / Unknown 07/09/2024 12:19 PM EDT 07/09/2024 1:13 PM EDT Ilda Pat DO LAB BLOOD ORDERABLES Final R esult [facility] [address] [place] [address] [phone] * (ABNORMAL) POCT HGB A1C (07/09/2024 11:23 AM EDT) Hemoglobin A1C 7.0(A) 4.0 - 6.0 % QC Media Lot # [id number] Lot# Expiration Date , Blood 07/09/2024 11:2 3 AM EDT Ilda Buitragokiclyde DO POINT OF CARE TEST ENTER/YUMI T ORDERABLES Final Result * POCT Glucose (07/09/2024 11:21 AM EDT) Glucose Blood, POC 180 60 - 200 mg/dL QC Media Lot # [id number] Lot# Expiration Date ,025 Blood Capillary blood specimen / Unknown 07/09/2024 11:21 AM EDT Ilda Buitragokiclyde DO POINT OF CARE TEST ENTER/YUMI T ORDERABLES Final Result documented in this encounter Visit Diagnoses Diagnosis Routine history and physical examination of adult- Primary Type 2 diabetes mellitus without complication, without long-term current use of insulin ([facility]) Other hyperlipidemia Anxiety Anxiety state, unspecified Mild intermittent asthma without complication BMI 29.0-29.9,adult documented in this encounter Additional Health Concerns Assessment Noted Time PHQ-9 Depression Total Score: 0 07/10/19 25 11:29 AM EDT documented as of this encounter Care Teams Software Applications Developer Relationship Specialty Start Date End Date Ilda Stewart DO [address] [place] [address] PCP - General Family Medicine 07/09/24 documented as of this encounter
--- OUTSIDE RECORDS SUMMARY | 2024-07-09 14:35 | XMS_ITS | Encounter Summary ---
Author Organization [employer] Address [address] [facility] [address] [place] [address] Care Team Providers Care Wheel Cleaner Name Role Phone Ilda Stewart DO Primary Care Provider [phone] Reason for Visit * Reason Onset Date Comments New patient 05/02/2024 Encounter Details Date Type Department Care Team (Late st Contact Info) Description 05/02/2024 Telephone [facility] MED[facility] [address] [place], [place] [phone] Mayra Hurt NP [address] [place], [place] [phone] New patient Social History Tobacco Use Types Packs/Day Years Used Date Smoking Tobacco: Never Assessed Comments Unknown Sex and Gender Information Value Date Recorded Sex Assigned at Unknown 07/05/2024 11:29 AM EDT Legal Sex Female 9:25 AM EST Gender Identity Choose not to disclose 11:29 AM EDT Sexual Orientation Don't know 07/05/2024 12 :39 PM EDT documented as of this encounter Miscellaneous Notes * Telephone Encounter - Maria Dolores Bloom - 05/02/2024 9:40 AM EST TC placed to patient for scheduling of new patient visit. Agreed to 07/26/24 with Mayra Hurt Medical Conditions: Diabetes Cholesterol Last seen 6 months ago Apptmnt reminder and release form sent via mail . documented in this encounter Plan of Treatment Not on file documented as of this encounter Visit Diagnoses Not on filedocumented in this encounter Care Teams Wheel Cleaner Relationship Specialty Start Date End Date Ilda Stewart DO [address] [place], [place] [phone] PCP - General Family Medicine 07/09/24 documented as of this encounter
[2024-07-09 15:59] LABS: CT PCR NOT DETECTED (Not Detect.); NG PCR NOT DETECTED (Not Detect.)
[2024-07-09 17:10] LABS: Vitamin B12 376 pg/mL (200-900)
[2024-07-09 19:49] LABS: Alanine Aminotransferase 26 U/L (0-31); Albumin Level 4.1 g/dL (3.5-5.0); Anion Gap 12 (12-20); Aspartate Amino Transferase 26 U/L (5-31); Bilirubin Direct 0.1 mg/dL (0.0-0.5); Bilirubin Total 0.4 mg/dL (0.0-1.0); Blood Urea Nitrogen 18 mg/dL (9-16); Calcium 9.4 mg/dL (8.4-10.2); Carbon Dioxide 25 mmol/L (22-29); Chloride 106 mmol/L (96-108); Cholesterol 295 mg/dL (<200); Estimated Glomerular Filt Rate > 60; Glucose Random 130 mg/dL (60-115); HDL Cholesterol 60 mg/dL (>40); LDL Cholesterol Calculated 201 mg/dL (<100); Potassium 4.2 mmol/L (3.3-5.1); Sodium 139 mmol/L (135-145); Total Protein 7.7 g/dL (6.5-8.0); Triglycerides 170 mg/dL (<150)
[2024-07-09 20:02] LABS: Alkaline Phosphatase 55 U/L (39-117); Free T4 (Free Thyroxine) 1.03 ng/dL (0.71-1.85); Thyroid Stimulating Hormone 0.92 uIU/mL (0.32-4.0); Vitamin D 25-OH Total 32.3 ng/mL (>30)
[2024-07-10 08:41] LABS: HBS Num1 200.94 mIU/mL (0-7.99); HBsAGNum1 0.32 S/CO (0.00-0.99); HIV AB/AG Nonreactive (Nonreactive); HIV Num 1 0.09 S/CO (0.00-0.99); Hepatitis B Core Antibody Nonreactive (Nonreactive); Hepatitis B Surface Antigen Negative (Negative); ~HepC Num1 0.21 S/CO (0.00-0.79); ~Hepatitis B Surface Antibody REACTIVE (Nonreactive); ~Hepatitis C Antibody Nonreactive (Nonreactive)
[2024-07-11 04:27] LABS: Hepatitis A Antibody IgG Nonreactive (Nonreactive); ~Hepatitis A Antibody IgG 0.39 S/CO (0.00-0.99)
[2024-07-11 09:44] LABS: RPR Rapid Plasma Reagin NON-REACTIVE (NON-REACTIVE)
== END 2024-07-09 12:13 | disposition home or self-care (01) ==
LOC: HO.HHCL 12:12
PROVIDERS: Visit Provider Family Medicine
DX: Z00.00 Encounter for general adult medical examination without abnormal findings (principal); E11.9 Type 2 diabetes mellitus without complications; E78.49 Other hyperlipidemia; J45.20 Mild intermittent asthma, uncomplicated; Z68.29 Body mass index [BMI] 29.0-29.9, adult
CPT/HCPCS: 80048; 80061; 80076; 82043; 82306; 82570; 82607; 82746; 83036; 84439; 84443; 85027; 86592; 86704; 86706; 86708; 86803; 87340; 87389; 87491; 87591